=== PATIENT | male | born 1995 | race Caucasian/White ===

== ENCOUNTER 2023-02-18 12:53 | Emergency (ER) | payer OTHER ==
[~2023-02-18] VITALS: Ht 175.3 cm; Wt 75.1 kg
[2023-02-18 12:54] VITALS: BP 143/99
== END 2023-02-18 16:04 | disposition home or self-care (01) ==
LOC: M ED 12:53
DX: J06.9 Acute upper respiratory infection, unspecified (principal); Z20.822 Contact with and (suspected) exposure to COVID-19